=== PATIENT | male | born 1995 | race Caucasian/White ===

== ENCOUNTER → 2021-04-06 | Outpatient (CLI) | payer SELFPAY | END | disposition home or self-care (01) | LOC: LAB SHORT 10:52 → LAB 10:52 | DX: B35.1 Tinea unguium (principal) | CPT/HCPCS: 87102 ==

== ENCOUNTER 2022-01-30 00:41 | Emergency (ER) | payer BC ==
[~2022-01-30] VITALS: Ht 177.8 cm; Wt 87.1 kg
== END 2022-01-30 06:07 | disposition home or self-care (01) ==
LOC: ER 00:41
DX: T18.2XXA Foreign body in stomach, initial encounter (principal); X58.XXXA Exposure to other specified factors, initial encounter
CPT/HCPCS: 71046; 74018